=== PATIENT | female | born 1965 | race Caucasian/White ===

== ENCOUNTER → 2017-02-27 | Outpatient (CLI) | payer OTHER | LOC: FIMAGING 08:58 | PROVIDERS: ATTEND Internal Medicine Gastroenterology | DX: R63.0 Anorexia (principal); R10.13 Epigastric pain; R11.0 Nausea ==

== ENCOUNTER → 2017-03-31 | Outpatient (CLI) | payer OTHER ==
--- NOTE | 2017-04-04 11:40 | CPEEG ---
[f rep st] ELECTROENCEPHALOGRAM DATE OF STUDY: 03/31/2017 DATE OF INTERPRETATION: 04/04/2017. INTERPRETATION: Normal EEG during wakefulness and sleep. There were no potentially epileptogenic ab normalities present during the awake or sleep recordings. REPORT: This EEG contains 10 Hz alpha activity in the posterior head regions. There was no abnormal elevation at rest, during photic stimulation or hyperventilation. The patient became drowsy and fel l asleep during the study. There was no abnormal elevation during drowsiness, sleep, or during times of arousal. /[id number]/MODL
== END ==
LOC: FCPNEURO 14:43
PROVIDERS: ATTEND Psychiatry & Neurology Neurology
DX: H53.19 Other subjective visual disturbances (principal)

== ENCOUNTER 2017-11-15 16:18 | Emergency (ER) | payer OTHER ==
[2017-11-15] MEDS ORDERED: KETOROLAC 30 MG/1 ML SDV IVP ONE (17:09)
[2017-11-15] MEDS ORDERED: METOCLOPRAMIDE 10 MG/2 ML VIAL IVP ONE (17:09)
--- NOTE | 2017-11-15 17:13 | EDPHY ---
H & P Stated Complaint: head pressure -better with head elevated, fatigue, nausea, chills Time Seen by Provider: 11/15/17 16:53 HPI/ROS: CHIEF COMPLAINT: Head pressure HISTORY OF PRESENT ILLNESS: The patient is a 52-year-old female with history of traumatic brain injury who follows with a neurologist at [facility]. 8 weeks ago she had a lumbar puncture for workup of her chronic neurologic symptoms. It was negative but a few days later she required a blood patch. The she states that she recovered well and has been doing well for the last 2 months until Monday when she developed body aches and a low-grade fever subjectively. The fever resolved by Monday but on Monday and Monday she has been having a feeling of pressure in her forehead and it is worse when she lays down. Mild nausea but no vomiting. She states that it feels like her head is "swimming". No vision changes. No hearing changes. No seizure-like activity. No altered mental status. It weakness focal numbness or paralysis. No speech changes. She states that it feels similar to when she had the LP leak. She was concerned about stroke and the nurse told her to come to the ER. She also has a history of chronic vertigo but states she is not currently having vertigo. Severity: Moderate Modifying factors: Position REVIEW OF SYSTEMS: Constitutional: denies: chills, fever, recent illness, recent injury EENTM: denies: blurred vision, double vision, nose congestion Respiratory: denies: cough, shortness of breath Cardiac: denies: chest pain, irregular heart rate, lightheadedness, palpitations Gastrointestinal/Abdominal: denies: abdominal pain, diarrhea, nausea, vomiting, blood streaked stools Genitourinary: denies: dysuria, frequency, hematuria, pain Musculoskeletal: denies: joint pain, muscle pain Skin: denies: lesions, rash, jaundice, bruising Neurological: See HPI no specific headache, now numbness, paresthesia, tingling , dizziness, or weakness Hematologic/Lymphatic: denies: blood clots, easy bleeding, easy bruising Immunologic/allergic: denies: HIV/AIDS, transplant EXAM: GENERAL: Well-appearing, well-nourished and in no acute distress. HEAD: Atraumatic, normocephalic. EYES: Pupils equal round and reactive to light, extraocular movements intact, sclera anicteric, conjunctiva are normal. ENT: TMs normal, nares patent, oropharynx clear without exudates. Moist mucous membranes. NECK: Normal range of motion, supple without lymphadenopathy or JVD. LUNGS: Breath sounds clear to auscultation bilaterally and equal. No wheezes rales or rhonchi. HEART: Regular rate and rhythm without murmurs, rubs or gallops. ABDOMEN: Soft, nontender, normoactive bowel sounds. No guarding, no rebound. No masses appreciated. BACK: No CVA tenderness, no spinal tenderness, step-offs or deformities EXTREMITIES: Normal range of motion, no pitting or edema. No clubbing or cyanosis. NEUROLOGICAL: Cranial nerves II through XII grossly intact. Normal speech, normal gait. 5/5 strength, normal movement in all extremities, normal sensation , normal reflexes PSYCH: Normal mood, normal affect. SKIN: Warm, dry, normal turgor, no visible rashes or lesions. Source: Patient Exam Limitations: No limitations - Personal History LMP (Females 10-55): Unknown - Medical/Surgical History Hx Asthma: No Hx Chronic Respiratory Disease: No Hx Diabetes: No Hx Cardiac Disease: No Hx Renal Disease: No Hx Cirrhosis: No Hx Alcoholism: No Hx HIV/AIDS: No Hx Splenectomy or Spleen Trauma: No Other PMH: multiple concussions, tbi, adrenal insuff., pelvic floor dysfunction - Family History Significant Family History: No pertinent family hx - Social History Smoking Status: Never smoked Alcohol Use: None Drug Use: None Constitutional: Initial Vital Signs Temperature (C) 36.5 C 11/15/17 16:22 Heart Rate 61 11/15/17 16:22 Respiratory Rate 16 11/15/17 16:22 Blood Pressure 90/74 L 11/15/17 16:22 O2 Sat (%) 97 11/15/17 16:22 O2 Delivery Mode Room Air Allergies/Adverse Reactions: latex Allergy (Verified 09/27/17 13:49) Home Medications: Medication Instructions Recorded Advair 250/50 (*) DAILY 09/27/17 Estradiol 1 mg PO DAILY 09/27/17 Hydrocortisone DAILY 09/27/17 Lorazepam 11/15/17 Metoclopramide [Reglan 10 mg tab 10 mg PO BID PRN #10 tab 11/15/17 (RX)] Ventolin Hfa 11/15/17 Medical Decision Making - Diagnostics Imaging Results: Imaging Impressions Head CT 11/15/17 17:06 Impression: No acute intracranial findings. If symptoms persist and clinical suspicion warrants, consider MRI. Findings discussed with EBONY MAYES 11/15/2017 at 18:00. Imaging: Discussed imaging studies w/ call or contact centre manager Radiologist ED Course/Re-evaluation: The patient is well-appearing and has no focal neurologic deficits. This is not consistent with a stroke and she feels reassured by our discussion. We discussed options for treatment. Will perform a CT scan and lab work but she adamantly declined any discussion about another lumbar puncture. She does not have any neck stiffness. No fever currently. 6:10 p.m. the patient is feeling completely better. She is asking for prescription for Reglan. She is reassured by the CT scan and does not wish to wait for the blood work. She states that she feels completely better. She is eager to go home. Differential Diagnosis: Partial list of the Differential diagnosis considered include but were not limited to; headache, migraine, anxiety and although unlikely based on the history and physical exam, I also considered generally, intracranial hypertension, tumor, hemorrhage. I discussed these differential diagnoses and the plan with the patient as well as the usual and expected course. The patient understands that the diagnosis is provisional and that in medicine we are not always correct and that further workup is often warranted. Usual and customary warnings were given. All of the patient's questions were answered. The patient was instructed to return to the emergency department should the symptoms at all worsen or return, otherwise to followup with the physician as we discussed. - Data Points Laboratory Results: Laboratory Results 11/15/17 17:30 11/15/17 17:30 11/15/17 11/15/17 17:30 17:30 WBC 7.02 10^3/uL 10^3/uL (3.80-9.50) RBC 4.64 10^6/uL 10^6/uL (4.18-5.33) Hgb 14.0 g/dL g/dL (12.6-16.3) Hct 42.3 % % (38.0-47.0) MCV 91.2 fL fL (81.5-99.8) MCH 30.2 pg pg (27.9-34.1) MCHC 33.1 g/dL g/dL (32.4-36.7) RDW 12.3 % % (11.5-15.2) Plt Count 283 10^3/uL 10^3/uL (150-400) MPV 10.5 fL fL (8.7-11.7) Neut % (Auto) 70.2 % % (39.3-74.2) Lymph % (Auto) 21.9 % % (15.0-45.0) [place] % (Auto) 6.4 % % (4.5-13.0) Eos % (Auto) 0.3 % L % (0.6-7.6) Baso % (Auto) 0.9 % % (0.3-1.7) Nucleat RBC Rel Count 0.0 % % (0.0-0.2) Absolute Neuts (auto) 4.93 10^3/uL 10^3/uL (1.70-6.50) Absolute Lymphs (auto) 1.54 10^3/uL 10^3/uL (1.00-3.00) Absolute Monos (auto) 0.45 10^3/uL 10^3/uL (0.30-0.80) Absolute Eos (auto) 0.02 10^3/uL L 10^3/uL (0.03-0.40) Absolute Basos (auto) 0.06 10^3/uL 10^3/uL (0.02-0.10) Absolute Nucleated RBC 0.00 10^3/uL 10^3/uL (0-0.01) Immature Gran % 0.3 % % (0.0-1.1) Immature Gran # 0.02 10^3/uL 10^3/uL (0.00-0.10) Sodium 139 mEq/L mEq/L (135-145) Potassium 4.4 mEq/L mEq/L (3.3-5.0) Chloride 105 mEq/L mEq/L (97-110) Carbon Dioxide 25 mEq/l mEq/l (22-31) Anion Gap 9 mEq/L mEq/L (8-16) BUN 7 mg/dL mg/dL (7-23) Creatinine 0.7 mg/dL mg/dL (0.6-1.0) Estimated GFR > 60 Glucose 84 mg/dL mg/dL (70-100) Calcium 9.7 mg/dL mg/dL (8.5-10.4) Medications Given: Discontinued Medications Ketorolac Tromethamine (Toradol) 30 mg IVP EDNOW ONE Stop: 11/15/17 17:10 Last Admin: 11/15/17 17:23 Dose: 30 mg Metoclopramide HCl (Reglan Injection) 10 mg IVP EDNOW ONE Stop: 11/15/17 17:10 Last Admin: 11/15/17 17:23 Dose: 10 mg Departure - Departure Disposition: Home, Routine, Self-Care Clinical Impression: Headache Qualifiers: Headache type: unspecified Headache chronicity pattern: acute headache Intractability: not intractable Qualified Code(s): R51 - Headache Condition: Fair Instructions: Acute Headache (ED) Referrals: Ashlee Cazares MD [Primary Care Provider] - As per Instructions Prescriptions: Metoclopramide [Reglan 10 mg tab (RX)] 10 mg PO BID PRN #10 tab PRN Reason: Headache
[2017-11-15 18:15] VITALS: BP 101/65
[2017-11-15 18:31] LABS: PLATELET COUNT 283 10^3/uL (150-400)
== END 2017-11-15 18:22 | disposition home or self-care (01) ==
DX: R51 Headache (principal)
CPT/HCPCS: 96374; J1885; J2765

== ENCOUNTER → 2018-01-23 | Outpatient (CLI) | payer OTHER | LOC: BMCIMAGING 08:02 | PROVIDERS: ATTEND Internal Medicine | DX: Z12.31 Encounter for screening mammogram for malignant neoplasm of breast (principal) ==

== ENCOUNTER → 2018-08-14 | Outpatient (CLI) | payer OTHER | LOC: BMCIMAGING 12:16 | PROVIDERS: ATTEND Family Medicine | DX: S69.91XA Unspecified injury of right wrist, hand and finger(s), initial encounter (principal) ==